=== PATIENT | male | born 1995 | race Caucasian/White ===

== ENCOUNTER 2018-01-10 04:15 | Emergency (ER) | payer SELFPAY ==
[2018-01-10 04:19] VITALS: BP 148/89; PULSE 105; RESP 16; TEMP 98.2; O2SAT 98
--- NOTE | 2018-01-10 05:08 | ED PDOC ---
HPI: Psych/Substance Abuse Time Seen by Provider: 01/10/18 04:23 Chief Complaint (Nursing): Alcohol Ingestion History Per: Patient History/Exam Limitations: no limitations Current Symptoms Are (Timing): Better Additional Complaint(s): Patient admits to alcohol use today and was trying to get into his friend's apartment on the 8th floor of a building, states he got turned around on the 1st floor and was confronted by the police who believed him to be tresspassing, was noted to have alcohol on breath and was brought to the ER. Patient has no complaints, denies injuries, denies drug use, denies suicidal or homicidal ideation. Past Medical History Reviewed: Historical Data, Nursing Documentation, Vital Signs Vital Signs: Last Vital Signs Temp 98.2 F 01/10/18 04:18 Pulse 105 H 01/10/18 04:18 Resp 16 01/10/18 04:18 BP 148/89 01/10/18 04:18 Pulse Ox 98 01/10/18 04:18 - Medical History PMH: No Chronic Diseases - Family History Family History: States: Unknown Family Hx - Allergies Allergies/Adverse Reactions: Allergies Allergy/AdvReac Type Severity Reaction Status Date / Time Penicillins Allergy ANAPHYLAXIS Verified 01/10/18 04:19 Review of Systems ROS Statement: Except As Marked, All Systems Reviewed And Found Negative Physical Exam - Reviewed Nursing Documentation Reviewed: Yes Vital Signs Reviewed: Yes - Physical Exam Appears: Positive for: Well, Non-toxic, No Acute Distress Head Exam: Positive for: ATRAUMATIC, NORMAL INSPECTION, NORMOCEPHALIC Skin: Positive for: Normal Color, Warm, DRY Eye Exam: Positive for: EOMI, Normal appearance, PERRL ENT: Positive for: Normal ENT Inspection Neck: Positive for: Normal, Painless ROM Cardiovascular/Chest: Positive for: Regular Rate, Rhythm Respiratory: Positive for: CNT, Normal Breath Sounds Gastrointestinal/Abdominal: Positive for: Normal Exam, Soft Back: Positive for: Normal Inspection Extremity: Positive for: Normal ROM Neurologic/Psych: Positive for: Alert, bulk loader II-XII, Oriented. Negative for: Motor/Sensory Deficits - ECG O2 Sat by Pulse Oximetry: 98 Pulse Ox Interpretation: Normal Medical Decision Making Medical Decision Making: Patient with mild intoxication of alcohol Well appearing, stable and steady gait, no trauma Stable for discharge Disposition - Clinical Impression Clinical Impression: Alcohol abuse - Disposition Referrals: Alcoholics Anonymous [Outside] Disposition: Routine/Home Disposition Time: 05:08 Condition: STABLE Instructions: Alcohol Abuse and Alcoholism (DC) Forms: [email or web address] (Armenian)
== END 2018-01-10 05:20 | disposition home or self-care (01) ==
LOC: H.ER 04:15
DX: F10.10 Alcohol abuse, uncomplicated (principal)